=== PATIENT | female | born 1990 | race Two or more races ===

== ENCOUNTER 2016-09-16 07:35 | Day surgery (SDC) | payer OTHER ==
[~2016-09-16 07:35] MED LIST: DIPHENHYDRAMINE HCL 50 MG/ML VIAL ONE; EPINEPHRINE INJ 1 MG/10 ML DISP.SYRIN ONE; FLUMAZENIL INJ 0.5 MG/5 ML VIAL IV ONE; GLUCAGON,HUMAN RECOMB 1 MG INJ ONE; NALOXONE HCL INJ/PF 0.4 MG/1 ML SDV ONE; ONDANSETRON HCL INJ/PF 4 MG/2 ML SDV ONE; PROMETHAZINE HCL INJ 25 MG/1 ML VIAL ONE
[2016-09-16] MEDS: MIDAZOLAM 2 MG/2 ML INJ ONE ×2 (08:13→08:17)
[2016-09-16] MEDS: FENTANYL CITRATE INJ/PF 100 MCG/2 ML AMPUL ONE ×2 (08:15→08:19)
--- NOTE | 2016-09-16 08:33 | Operative Report ---
Operative Report DATE OF SURGERY: 09/16/16 Operative Report: The risks benefits and alternatives of the procedure explained to the patient in detail and informed consent is obtained that GIF Olympus video scope was inserted into the patient's mouth and hypopharynx the esophagus is identified intubated and insufflated the scope was then advanced through the esophagus stomach and duodenum retroflexion maneuver is done the esophagus stomach and first and second portions of the duodenum examined PREOPERATIVE DIAGNOSIS: Follow-up on esophago-gastric junction nodule. History of Iridocyclitis POSTOPERATIVE DIAGNOSIS: Mild duodenitis biopsy to rule out celiac disease. Gastritis status post biopsy rule out Helicobacter pylori. Nodule still present it is small in size however associated with Ramon's esophagus requiring ablation OPERATION: EGD with ablation. EGD with biopsy SURGEON: AMERICA JARAMILLO ANESTHESIA: Moderate Sedation - 4 mg of Versed, 100 g of fentanyl. Conscious sedation monitoring time 15 minutes. TISSUE REMOVED OR ALTERED: Duodenal specimens and gastric specimen obtained. COMPLICATIONS: None. ESTIMATED BLOOD LOSS: none. INTRAOPERATIVE FINDINGS: As described above. PROCEDURE: Patient tolerated the procedure well. No immediate postprocedure complications are noted. Patient is discharged in good condition. Discharge date 09/16/2016. Discharge diet: Regular. Discharge activity: Regular. Follow-up to 3 weeks Patient is instructed to call the office or proceed to the emergency room should there be any further problems or questions. Follow-up on biopsies Surveillance EGD in 1 year
[2016-09-16 09:27] VITALS: BP 99/66
== END 2016-09-16 09:30 | disposition home or self-care (01) ==
LOC: END 07:35
PROVIDERS: ATTEND Internal Medicine Gastroenterology
PROC: 0D558ZZ Destruction of Esophagus, Via Natural or Artificial Opening Endoscopic (ICD-10-PCS; 2016-09-16)
PROC: 0DB68ZX Excision of Stomach, Via Natural or Artificial Opening Endoscopic, Diagnostic (ICD-10-PCS; principal; 2016-09-16 08:00)
PROC: 0DB98ZX Excision of Duodenum, Via Natural or Artificial Opening Endoscopic, Diagnostic (ICD-10-PCS; 2016-09-16 08:00)
DX: K22.9 Disease of esophagus, unspecified (principal); K29.80 Duodenitis without bleeding; K29.50 Unspecified chronic gastritis without bleeding; K22.70 Barrett's esophagus without dysplasia; Z09 Encounter for follow-up examination after completed treatment for conditions other than malignant neoplasm
CPT/HCPCS: 43270; 43239; 88342 ×2; 88305 ×2; J2250; J3010; J1610; J0171; J1200; J2310; J2405; J2550; J3490